=== PATIENT | female | born 1980 | race Caucasian/White ===

== ENCOUNTER → 2017-09-26 | Outpatient (CLI) | payer OTHER ==
--- NOTE | 2017-09-26 20:52 | CONS ---
CONSULTATION DATE OF SERVICE: 09/26/2017. IDENTIFYING DATA: A 37-year-old lady, has [facility] for possible obstructive sleep apnea-hypopnea syndrome. HISTORY OF PRESENT ILLNESS: The patient's usual sleep schedule is from midnight until 8 a.m. on working days and from around 1 a.m. until 9 a.m. on weekends. Usually no problems with falling asleep. She does not have a TV in the bedroom. Sleeps on the side and back position with her with snoring, witnessed episodes of stopped breathing during the sleep. The patient wakes up from sleep up to 2 times per night with 1 episode of nocturia. [place] Sleepiness Scale is 4. PAST MEDICAL HISTORY: Positive for hypertension, asthma, headaches, acid reflux, recently diagnosed with polycystic ovarian syndrome. PAST SURGICAL HISTORY: Left eye surgery for correction of position of the eye and a cyst removed of from the back of her spine in 2004. SOCIAL HISTORY: Positive for smoking about half pack a day for 20 years. Alcohol consumption occasional. MEDICATIONS: Hydrochlorothiazide, B complex, omega-3 fish oil. FAMILY HISTORY: Hypertension, hyperlipidemia, snoring, insomnia, diabetes, mental illness. REVIEW OF SYSTEMS: Awakenings from sleep. Migraine episodes. Increasing weight. PHYSICAL EXAMINATION: GENERAL: lady without distress. VITAL SIGNS: BP 149/95 on the right arm, HR 81, RR 16, height 5 feet 9 inches, weight 300.6, BMI 44.3, temperature 97.8, oxygen saturation room air 98%. HEENT: Oropharynx, moderately low position of soft palate. Short distance between soft palate and pharyngeal wall. Wide pillars. Restriction of nasal breathing bilaterally. Wide neck 18-1/4 inches in circumference. ABDOMEN: Obese. Soft and nontender. Bowel sounds are present. No organomegaly appreciated. EXTREMITIES No clubbing or cyanosis. [employer] Awake, alert, and oriented X3. Cranial nerves 2 to 7 intact. There is no fasciculation or atrophy. noted. No focal deficits observed. IMPRESSION: 1. Snoring, witnessed episodes of stopped breathing during the sleep, small oropharyngeal air space, restriction of nasal breathing, wide neck, obstructive sleep apnea-hypopnea syndrome. 2. Obesity, BMI 44.33. 3. Hypertension. 4. History of asthma in childhood. 5. History of acid reflux. 6. Migraine episodes. 7. Status post eye surgery for correction position of left eye. 8. Status post cyst removed from spine in 2004. 9. Polycystic ovarian syndrome. PLAN: 1. Polysomnography for evaluation of patient's breathing during sleep. 2. CPAP/BiPAP titration if sleep study confirms obstructive sleep apnea-hypopnea syndrome. 3. Preferable position during sleep on the side. 4. No driving if patient feels any sleepiness. Patient is aware of civil and criminal liability for unsafe driving. 5. I will see patient for follow up visit to explain results of testing and following plan. Thank you very much for the consultation. Conrad Santoro MD, PhD, FAASM Diplomat of [employer] [employer] [facility] [place] MMODL / IJN: [id number] /
== END | disposition home or self-care (01) ==
LOC: SLEEP 13:14
PROVIDERS: ATTEND Internal Medicine
DX: G47.33 Obstructive sleep apnea (adult) (pediatric) (principal); E66.9 Obesity, unspecified; I10 Essential (primary) hypertension; G43.909 Migraine, unspecified, not intractable, without status migrainosus; E28.2 Polycystic ovarian syndrome; F17.200 Nicotine dependence, unspecified, uncomplicated; Z68.41 Body mass index [BMI] 40.0-44.9, adult; Z98.890 Other specified postprocedural states; Z79.899 Other long term (current) drug therapy
CPT/HCPCS: 99211